=== PATIENT | female | born 1985 | race Caucasian/White ===

== ENCOUNTER 2016-06-01 04:50 | Emergency (ER) | payer BC ==
--- NOTE | 2016-06-01 06:27 | ED NURSING NOTES ---
Clinical Report - Nurses [facility] [address] [place] [address] 06/01/2016 4:52 [id number] Triage time 05:00 Jun 01 2016. Acuity: LEVEL 3. Chief Complaint: ANXIETY and AGITATED (flighty racing thoughts). 05:15 06/01/16. NATHANIEL COMA SCORE: Nathaniel Coma Scale: 15- eyes open spontaneously (4); best verbal response- oriented x 4 (5); best motor response- obeys commands (6). --05:15 Roma Nuno R.N. 05:00 06/01/16. BP: 124/83. HR: 98. RR: 24. O2 saturation: 100%. Temp: 98.5 F. Pain level now: 0/10. --05:15 Roma Nuno R.Rashmi. Weight: 65.7 kg stated. Height/Length: 60 inches Per Patient. BMI: 28.3. --04:59 Roma Nuno R.N. Medications Geodon Oral. --05:10 Roma Nuno R.N. LaMICtal Oral. --05:10 Roma Nuno R.N. Sertraline HCl Oral. --05:10 Roma Nuno R.N. Amitriptyline HCl Oral. --05:10 Roma Nuno R.N. Adderall Oral. --05:21 Roma Nuno R.N. Medication/allergy information source: the patient. --05:15 Roma Nuno R.N. Allergies Codeine. --05:11 Roma Nuno R.N. History Arrived by private vehicle. Historian: patient. Unaccompanied. Onset. (2 weeks). ( Patient reports new med to regime for her bipolar therapy. Geodon was added 2 weeks ago. 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 Reports feeling that she'd rather than go through this but doesnt voice direct suicidal thoughts or plans. 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 She reports she wants to calm down. Feels that symptoms started right after starting Geodon.). She has had anxiety and sleeping difficulties. Has been feeling agitated. Treatment ALTERATION WORKROOM SUPERVISOR: None. PAST MEDICAL HX: Denies current . SOCIAL HX: Never smoker. No alcohol use or drug use. No infectious disease exposure. ABUSE ASSESSMENT: No report of abuse. SELF HARM ASSESSMENT: A self harm assessment was performed. The patient answered "no" to the question "Have you recently felt down, depressed, or hopeless?", "Have you noticed less interest or pleasure in doing things?", "Do you have thoughts of harming or killing yourself?", "Are you here because you tried to hurt yourself?", "Have you ever tried to hurt yourself before today?", "Have you recently had thoughts about harming or killing others?" and "Do you have any dangerous items in your possession?". The patient reports their behavior as irritable and anxious. In the ED the patient has been restless and anxious. NUTRITIONAL RISK ASSESSMENT: The nutritional risk assessment revealed no deficiencies. FUNCTIONAL ASSESSMENT: Functional assessment: no impairments noted. LEARNING NEEDS ASSESSMENT: The learning needs assessment revealed no barriers. SKIN INTEGRITY ASSESSMENT: Skin integrity risk assessment completed. No skin integrity risk identified. --05:15 Roma Nuno R.N. PROBLEMS: Bipolar Disorder. --05:11 Roma Nuno R.N. ADDITIONAL SURGERIES: no known surgeries. Interventions ID band on patient. --05:15 Roma Nuno R.N. PHYSICAL ASSESSMENT 05:20 06/01/16. GENERAL / NEURO / PSYCH: Alert. Oriented X 4. Speech within normal limits. Affect appears abnormal. She appears to have altered thought processes, verbalized as "feeling outside of my body" and flights of ideas. Good eye contact. Denies suicidal thoughts. Patient does not express homicidal thoughts. Patient appears agitated. Patient appears well-nourished and neat and clean but does not smell of alcohol. She does not have abnormal gait. RESPIRATORY: Respirations not labored. CVS: Normal heart rate and rhythm. Capillary refill less than 2 seconds. GI / : Abdomen soft. SKIN: Skin is warm and dry. Skin not intact. --05:20 Roma Nuno R.N. NURSING PROGRESS NOTES 05:00 06/01/16. The initial plan of care for this patient includes an assessment with efforts to address the patient's anxiety and fear; impairment of the neurological system; therapeutic needs of the patient as indicated by complaint specific guidelines. This plan of care was discussed with the patient. Patient gowned. Reassurance given. Patient identifiers checked. Call light placed in reach. Bed placed in lowest position. Brakes of bed on. Patient ready for evaluation. --05:21 Roma Nuno R.N. 05:30. Checked patient name and birthdate: patient confirmed. Blood samples drawn from the right antecubital space by tech per protocol ; labeled in presence of the patient and sent to lab: rainbow set. --05:36 McQuoid, Brianna, ER Tech1 05:35 Urine sample requested; patient unable to void at this time. Patient given water and crackers per request. --05:37 McQuoid, Brianna, ER Tech1 06:06 06/01/2016 Ativan (LORazepam) PO Tablets 1 mg given. Allergies verified, confirmed 5 rights and sedative warning given to the patient. --06:07 Roma Nuno R.N. DISPOSITION / DISCHARGE 06:48 06/01/16. BP: 121/73. HR: 83. RR: 16. O2 saturation: 100%. Temp: 98.5 F. Pain level now 2/10. --06:48 Roma Nuno R.N. 06:53 06/01/16. Departure time: 06:53 Jun 01 2016. Condition at departure: improved and stable. The goals identified in the patient's plan of care were met. No learning barriers present. Discharge instructions provided and reviewed with the patient. Reviewed medication(s) side effects, precautions, dosing and course information. Prescription(s) given to the patient. Reviewed referral to a primary care physician for followup. Summary of care provided to patient via paper. Patient verbalized understanding. Written instructions provided in Hungarian. The patient was discharged home and accompanied by spouse. She left the Emergency Department ambulatory and via private vehicle. Spouse driving. --06:53 Roma Nuno R.N. Locked/Released at 06/01/2016 6:53 by Roma Nuno R.N.
--- NOTE | 2016-06-01 06:27 | ED CLINICAL REPORT ---
Clinical Report - Physicians/Mid Levels [facility] [address] [place] [address] 06/01/2016 4:52 Patient: CIRO BIRMINGHAM Time Seen: 0458; initial patient contact. Arrived- By private vehicle. Not in custody. Historian- patient. HISTORY OF PRESENT ILLNESS Chief Complaint: ANXIOUS. This started about 2 days ago. No situational problems or recent drug use or alcohol consumption. She has exhibited a sudden behavior change. She has had insomnia (Manic). She was not found wandering and is compliant with medication. Has not been eating or sleeping. She has had anxiety. Has not been depressed. No anger, unusual behavior, paranoia, delusions or suicidal thoughts. No self-injury inflicted or hallucinations. The symptoms are described as moderate. Additional history - Dx of Bipolar II. No H/O iban, was started on Geodon 2 weeks ago. Similar symptoms previously: None. Recent medical care: Not recently seen/assessed. REVIEW OF SYSTEMS No headache, palpitations, abdominal pain, fever or difficulty breathing. No skin rash. All systems otherwise negative, except as recorded above. PAST HISTORY ( Bipolar II). Surgeries: No history of previous surgery. SOCIAL HISTORY Never smoker. No alcohol use or drug use. Has good social support. Lives with family. Concerned individual (family) will stay with patient. Has place to stay. ADDITIONAL NOTES The nursing notes have been reviewed with agreement regarding the chief complaint, PMH and patient medications and allergies. PHYSICAL EXAM Appearance: Alert. Appearance is normal. Patient is in mild distress. Anxious. Eyes: Pupils equal, round and reactive to light. Neck: Normal inspection. Neck supple. No lymphadenopathy. CVS: Normal heart rate and rhythm. Heart sounds normal. Respiratory: No respiratory distress. Breath sounds normal. Abdomen: Soft and nontender. Obese. Back: No tenderness. No tenderness. Skin: Skin warm and dry. Normal skin color. Extremities: No lower extremity edema. Psych / Neuro: Oriented X 3. Mood and affect normal. Speech normal. Cognition normal. Thought process and content normal. Insight and judgement normal. LABS, X-RAYS, AND EKG Laboratory Tests: UA-Culture if indicated: (RAMONITA: 06/01/2016 06:00) ( [facility] 06/01/2016 06:19) Final results Test Result Flag Units (Reference) URINE COLOR YELLOW URINE APPEARANCE CLEAR URINE GLUCOSE NEGATIVE (NEGATIVE) URINE BILIRUBIN NEGATIVE (NEGATIVE) URINE KETONE NEGATIVE (NEGATIVE) URINE SPECIFIC GRAVITY 1.020 (1.010-1.030) URINE PH 8.5 H (5.0-8.0) URINE PROTEIN NEGATIVE (NEGATIVE) URINE UROBILINOGEN 0.2 EU/dL (0.2-1.0) URINE NITRITE NEGATIVE (NEGATIVE) URINE BLOOD TRACE-INTACT (NEGATIVE) URINE LEUK ESTERASE POSITIVE (NEGATIVE) URINE RBC 1-3 rbc/hpf (0-1) URINE WBC 10-15 wbc/hpf (0-1) URINE EPITHELIAL CELLS 1-3 EPI/hpf (0-5) URINE BACTERIA NONE SEEN (NONE SEEN) URINE COMMENT CULTURE INDICATED 2+ AMORPHOUSURINE CULTURES ARE SET-UP BASED ON THE FOLLOWING CRITERIA:POSITIVE NITRITEPOSITIVE LEUKOCYTE ESTERASEGREATER THAN 10 WHITE BLOOD CELLSMODERATE (2+) OR GREATER BACTERIA CBC w Diff: (RAMONITA: 06/01/2016 05:35) ( [facility] 06/01/2016 05:42) Final results Test Result Flag Units (Reference) WHITE BLOOD COUNT 8.5 K/uL (4.5-11.5) RED BLOOD COUNT 4.06 M/uL (4.00-5.20) HEMOGLOBIN 12.8 gm/dL (12.0-16.0) HEMATOCRIT 37.5 % (36.0-46.0) MEAN CELL VOLUME 92 fL (80-100) MEAN CORPUSCULAR HGB 31 pg (26-34) MEAN CORPUSCULAR HGB CONC 34 g/dL (31-37) RED CELL DISTRIBUTION WIDTH 13.1 % (11.6-14.8) PLATELET COUNT 371 K/uL (150-400) NEUTROPHIL % 69.6 % (50-75) LYMPH % 21.1 L % (25-40) MONO % 5.9 % (3-14) EOSINOPHIL % 3.0 % (0-4) BASOPHIL % 0.4 % (0-2) CMP: (RAMONITA: 06/01/2016 05:35) ( MsgRcvd 06/01/2016 06:15) Final results Test Result Flag Units (Reference) GLUCOSE 116 H mg/dL (70-110) BUN 9 mg/dL (7-18) CREATININE 0.7 mg/dL (0.6-1.3) Estimated GFR >60 mL/min Estimated GFR- >60 mL/min Note: Persistent reduction over 3 months in eGFR<60 mL/min/1.73 m2 defines CKD. Patients with eGFR values>=60 mL/min/1.73 m2 may also have CKD if evidence ofpersistent proteinuria. Additional information may be foundat www.kidney.org. SODIUM 142 mmol/L (136-145) POTASSIUM 3.6 mmol/L (3.5-5.1) CHLORIDE 104 mmol/L (98-107) CARBON DIOXIDE 27 mmol/L (21-32) CALCIUM 9.6 mg/dL (8.5-10.1) TOTAL PROTEIN 7.2 g/dL (6.4-8.2) ALBUMIN 4.2 g/dL (3.3-5.0) BILIRUBIN, TOTAL 0.3 mg/dL (0.0-1.0) ALKALINE PHOSPHATASE 63 U/L (46-116) AST (SGOT) 11 L U/L (15-37) ALT (SGPT) 19 U/L (12-78) THYROID STIMULATING HORMONE 4.543 H uIU/mL (0.34-3.74) . PROGRESS AND PROCEDURES Disposition: Discharged home in good and improved condition. Condition: good. CLINICAL IMPRESSION Chronic bipolar II disorder with the current episode being moderately manic without psychosis. Not hypomanic. Acute urinary tract infection with cystitis. Acquired hypothyroidism. INSTRUCTIONS Your Current Medications: STOP TAKING THE FOLLOWING MEDICATIONS: Adderall Oral. Geodon Oral. CONTINUE TAKING THE FOLLOWING MEDICATIONS: Amitriptyline HCl Oral. LaMICtal Oral. Sertraline HCl Oral. Prescription Medications: Ativan 1 mg: take 1 orally every 8 hours as needed for anxiety or sleep. Dispense fifteen (15). No refill. Substitution is permissible. Cipro 500 mg: take 1 tab orally every 12 hours for 3 days. No refills. Substitution is permissible. Follow-up: Follow up with your doctor in about two days. Call for an appointment. Screening today revealed the patient's blood pressure to be in the pre-hypertensive range. The patient should follow up with a primary care provider for blood pressure management. (Electronically signed by Douglas Merritt Dr. 06/01/2016 6:36)
--- NOTE | 2016-06-01 06:27 | ED ORDER SUMMARY ---
..... Patient: CIRO BIRMINGHAM OrderSheet [facility] VisitID: [id number] [address] [place] [address] 30y, F Registration Date/Time: 06/01/2016 ORDER SHEET Weight: 65.7 kg (stated) Allergies: Codeine GENERAL ORDERS: CBC w Diff Urgent (05:06/01/2016 Elissa Sahni) (Ack 5:26 IJurca ER Tech1) (5:35 AMcQuoid ER Tech1) CMP Urgent (05:06/01/2016 Elissa Sahni) (Ack 5:26 IJurca ER Tech1) (5:35 AMcQuoid ER Tech1) UA-Culture if indicated Urgent (05:06/01/2016 Elissa Sahni) (Ack 5:26 IJurca ER Tech1) (6:07 EInderbitzen R.N.) Urine Urgent (05:06/01/2016 Elissa Sahni) (Ack 5:26 IJurca ER Tech1) (6:07 EInderbitzen R.N.) Urine Drug Screen Urgent (05:06/01/2016 Elissa Sahni) (Ack 5:26 IJurca ER Tech1) (6:07 EInderbitzen R.N.) TSH Urgent (05:06/01/2016 Elissa Sahni) (Ack 5:26 IJurca ER Tech1) (5:35 AMcQuoid ER Tech1) MEDICATION ORDERS: Ativan PO 1 mg (HIGH ALERT MEDICATION, NOW) (06:06 06/01/2016 Elissa Sahni) (6:07 EInderbitzen R.N.) IV FLUIDS: ORDER SHEET NOTES: [Electronically signed by Douglas Merritt Dr. (06:36 06/01/2016)] [Electronically signed by Roma Nuon R.N. (06:53 06/01/2016)] [Electronically locked/signed by Roma Nuno R.N. (06:53 06/01/2016)]
--- NOTE | 2016-06-01 06:27 | ED ORDER SUMMARY ---
..... Patient: CIRO BIRMINGHAM OrderSheet [facility] VisitID: [id number] [address] [place] [address] 30y, F Registration Date/Time: 06/01/2016 ORDER SHEET Weight: 65.7 kg (stated) Allergies: Codeine GENERAL ORDERS: CBC w Diff Urgent (05:06/01/2016 Elissa Sahni) (Ack 5:26 IJurca ER Tech1) (5:35 AMcQuoid ER Tech1) CMP Urgent (05:06/01/2016 Elissa Sahni) (Ack 5:26 IJurca ER Tech1) (5:35 AMcQuoid ER Tech1) UA-Culture if indicated Urgent (05:06/01/2016 Elissa Sahni) (Ack 5:26 IJurca ER Tech1) (6:07 EInderbitzen R.N.) Urine Urgent (05:06/01/2016 Elissa Sahni) (Ack 5:26 IJurca ER Tech1) (6:07 EInderbitzen R.N.) Urine Drug Screen Urgent (05:06/01/2016 Elissa Sahni) (Ack 5:26 IJurca ER Tech1) (6:07 EInderbitzen R.N.) TSH Urgent (05:06/01/2016 Elissa Sahni) (Ack 5:26 IJurca ER Tech1) (5:35 AMcQuoid ER Tech1) MEDICATION ORDERS: Ativan PO 1 mg (HIGH ALERT MEDICATION, NOW) (06:06 06/01/2016 Elissa Sahni) (6:07 EInderbitzen R.N.) IV FLUIDS: ORDER SHEET NOTES: [Electronically signed by Douglas Merritt Dr. (06:36 06/01/2016)] [Electronically signed by Roma Nuno R.N. (06:53 06/01/2016)] [Electronically locked/signed by Roma Nuno R.N. (06:53 06/01/2016)]
--- NOTE | 2016-06-01 06:27 | ED NURSING NOTES ---
Clinical Report - Nurses [facility] [address] [place] [address] 06/01/2016 4:52 [id number] Triage time 05:00 Jun 01 2016. Acuity: LEVEL 3. Chief Complaint: ANXIETY and AGITATED (flighty racing thoughts). 05:15 06/01/16. NATHANIEL COMA SCORE: Nathaniel Coma Scale: 15- eyes open spontaneously (4); best verbal response- oriented x 4 (5); best motor response- obeys commands (6). --05:15 Roma Nuno R.N. 05:00 06/01/16. BP: 124/83. HR: 98. RR: 24. O2 saturation: 100%. Temp: 98.5 F. Pain level now: 0/10. --05:15 Roma Nuno R.Rashmi. Weight: 65.7 kg stated. Height/Length: 60 inches Per Patient. BMI: 28.3. --04:59 Roma Nuno R.N. Medications Geodon Oral. --05:10 Roma Nuno R.N. LaMICtal Oral. --05:10 Roma Nuno R.N. Sertraline HCl Oral. --05:10 Roma Nuno R.N. Amitriptyline HCl Oral. --05:10 Roma Nuno R.N. Adderall Oral. --05:21 Roma Nuno R.N. Medication/allergy information source: the patient. --05:15 Roma Nuno R.N. Allergies Codeine. --05:11 Roma Nuno R.N. History Arrived by private vehicle. Historian: patient. Unaccompanied. Onset. (2 weeks). ( Patient reports new med to regime for her bipolar therapy. Geodon was added 2 weeks ago. 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 Reports feeling that she'd rather than go through this but doesnt voice direct suicidal thoughts or plans. 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 She reports she wants to calm down. Feels that symptoms started right after starting Geodon.). She has had anxiety and sleeping difficulties. Has been feeling agitated. Treatment PRACTICE SUPPORT SPECIALIST: None. PAST MEDICAL HX: Denies current . SOCIAL HX: Never smoker. No alcohol use or drug use. No infectious disease exposure. ABUSE ASSESSMENT: No report of abuse. SELF HARM ASSESSMENT: A self harm assessment was performed. The patient answered "no" to the question "Have you recently felt down, depressed, or hopeless?", "Have you noticed less interest or pleasure in doing things?", "Do you have thoughts of harming or killing yourself?", "Are you here because you tried to hurt yourself?", "Have you ever tried to hurt yourself before today?", "Have you recently had thoughts about harming or killing others?" and "Do you have any dangerous items in your possession?". The patient reports their behavior as irritable and anxious. In the ED the patient has been restless and anxious. NUTRITIONAL RISK ASSESSMENT: The nutritional risk assessment revealed no deficiencies. FUNCTIONAL ASSESSMENT: Functional assessment: no impairments noted. LEARNING NEEDS ASSESSMENT: The learning needs assessment revealed no barriers. SKIN INTEGRITY ASSESSMENT: Skin integrity risk assessment completed. No skin integrity risk identified. --05:15 Roma Nuno R.N. PROBLEMS: Bipolar Disorder. --05:11 Roma Nuno R.N. ADDITIONAL SURGERIES: no known surgeries. Interventions ID band on patient. --05:15 Roma Nuno R.N. PHYSICAL ASSESSMENT 05:20 06/01/16. GENERAL / NEURO / PSYCH: Alert. Oriented X 4. Speech within normal limits. Affect appears abnormal. She appears to have altered thought processes, verbalized as "feeling outside of my body" and flights of ideas. Good eye contact. Denies suicidal thoughts. Patient does not express homicidal thoughts. Patient appears agitated. Patient appears well-nourished and neat and clean but does not smell of alcohol. She does not have abnormal gait. RESPIRATORY: Respirations not labored. CVS: Normal heart rate and rhythm. Capillary refill less than 2 seconds. GI / : Abdomen soft. SKIN: Skin is warm and dry. Skin not intact. --05:20 Roma Nuno R.N. NURSING PROGRESS NOTES 05:00 06/01/16. The initial plan of care for this patient includes an assessment with efforts to address the patient's anxiety and fear; impairment of the neurological system; therapeutic needs of the patient as indicated by complaint specific guidelines. This plan of care was discussed with the patient. Patient gowned. Reassurance given. Patient identifiers checked. Call light placed in reach. Bed placed in lowest position. Brakes of bed on. Patient ready for evaluation. --05:21 Roma Nuno R.N. 05:30. Checked patient name and birthdate: patient confirmed. Blood samples drawn from the right antecubital space by tech per protocol ; labeled in presence of the patient and sent to lab: rainbow set. --05:36 McQuoid, Brianna, ER Tech1 05:35 Urine sample requested; patient unable to void at this time. Patient given water and crackers per request. --05:37 McQuoid, Brianna, ER Tech1 06:06 06/01/2016 Ativan (LORazepam) PO Tablets 1 mg given. Allergies verified, confirmed 5 rights and sedative warning given to the patient. --06:07 Roma Nuno R.N. DISPOSITION / DISCHARGE 06:48 06/01/16. BP: 121/73. HR: 83. RR: 16. O2 saturation: 100%. Temp: 98.5 F. Pain level now 2/10. --06:48 Roma Nuno R.N. 06:53 06/01/16. Departure time: 06:53 Jun 01 2016. Condition at departure: improved and stable. The goals identified in the patient's plan of care were met. No learning barriers present. Discharge instructions provided and reviewed with the patient. Reviewed medication(s) side effects, precautions, dosing and course information. Prescription(s) given to the patient. Reviewed referral to a primary care physician for followup. Summary of care provided to patient via paper. Patient verbalized understanding. Written instructions provided in Albanian. The patient was discharged home and accompanied by spouse. She left the Emergency Department ambulatory and via private vehicle. Spouse driving. --06:53 Roma Nuno R.N. Locked/Released at 06/01/2016 6:53 by Roma Nuno R.N.
--- NOTE | 2016-06-01 06:54 | ED MAR SUMMARY ---
..... Medication Administration Record [facility] [address] [place] [address] Patient: CIRO BIRMINGHAM Visit ID: [id number] 30y, F Weight: 65.7 kg Height/Length: 60 in BMI: 28.3 ALLERGIES: Codeine Given 06:06 06/01/2016 Roma Nuno R.N. Medication Administered: ATIVAN [PO] (LORAZEPAM), Dose: 1 mg Tablets PO. Medication Ordered: Ativan PO 1 mg (HIGH ALERT MEDICATION, NOW).
--- NOTE | 2016-06-01 06:54 | ED DISCHARGE INSTRUCTIONS ---
Patient: CIRO BIRMINGHAM General Instructions [facility] VisitID: [id number] [place] [address] 30y, F Registration Date/Time: 06/01/2016 Chronic bipolar II disorder with the current episode being moderately manic without psychosis. Not hypomanic. Acute urinary tract infection with cystitis. Acquired hypothyroidism. INSTRUCTIONS Your Current Medications: STOP TAKING THE FOLLOWING MEDICATIONS: Adderall Oral. Geodon Oral. CONTINUE TAKING THE FOLLOWING MEDICATIONS: Amitriptyline HCl Oral. LaMICtal Oral. Sertraline HCl Oral. Prescription Medications: Ativan 1 mg: take 1 orally every 8 hours as needed for anxiety or sleep. Dispense fifteen (15). No refill. Substitution is permissible. Cipro 500 mg: take 1 tab orally every 12 hours for 3 days. No refills. Substitution is permissible. Follow-up: Follow up with your doctor in about two days. Call for an appointment. Screening today revealed the patient's blood pressure to be in the pre-hypertensive range. The patient should follow up with a primary care provider for blood pressure management. ADDITIONAL INFORMATION Bipolar Disorder Bipolar disorder (formerly called manic depression) is an illness that causes strong mood swings between depression and iban. This can interfere with work and relationships. In a manic episode, you may think fast and do things quickly. It may seem like you are getting a lot done. At first, this may feel very good; but in the extreme this can lead to a lifestyle that is disorganized, chaotic, and includes risky behavior (spending sprees, sexual acting-out, or drug use). In later stages, it may affect eating (no interest in food) and sleeping (unable to sleep for days at a time). Speech may speed up and become difficult for others to understand. You may appear to others as if you are in your own world. In a depressive episode, you may feel a lack of interest in normal activities. Sometimes there is sadness or guilt without any clear reason. Thinking may become slow and there can be a lack energy or feeling of hopelessness. Some people have thoughts of harming themselves at this stage. Thoughts can even turn to suicide. Between these two phases you may actually feel okay. This does not mean that the illness is gone. People with this disorder will usually have to treat it all of their life. Medication and good care can greatly reduce the symptoms. The exact cause of this illness is unknown. However, there is a genetic link that makes a person more likely to get this problem. Also, the use of drugs such as speed (amphetamine) and cocaine increase the chances of this illness appearing. Home Care: Be sure to take your medicine even if you think you dont need it. Talk with your family about your thoughts and feelings. Follow Up with your doctor or therapist as directed by our staff. They can help you to find ways to improve your life. For more information: The [employer] www.indira.org 070-882-6105. Get Prompt Medical Attention if any of the following occur: Feeling like your symptoms are getting worse (depression, agitation, excess energy) Unable to eat or sleep for more than 48 hours Feeling out of control (racing thoughts, poor concentration) Feeling like you want to harm yourself or another Being unable to care for yourself Bladder Infection,Female (Adult) A bladder infection ("cystitis" or "UTI") usually causes a constant urge to urinate and a burning when passing urine. Urine may be cloudy, smelly or dark. There may be pain in the lower abdomen. A bladder infection occurs when bacteria from the vaginal area enter the bladder opening (urethra). This can occur from sexual intercourse, wearing tight clothing, dehydration and other factors. Home Care: Drink lots of fluids (at least 6-8 glasses a day, unless you must restrict fluids for other medical reasons). This will force the medicine into your urinary system and flush the bacteria out of your body. Avoid sexual intercourse until your symptoms are gone. Avoid caffeine, alcohol and spicy foods. These can irritate the bladder. A bladder infection is treated with antibiotics. You may also be given Pyridium (generic = phenazopyridine) to reduce the burning sensation. This medicine will cause your urine to become a bright orange color. The orange urine may stain clothing. You may wear a pad or panty-liner to protect clothing. Preventing Future Infections: Always wipe from front to back after a bowel movement. Keep the genital area clean and dry. Drink plenty of fluids each day to avoid dehydration. Both sexual partners should wash before intercourse. Urinate right after intercourse to flush out the bladder. Wear cotton underwear and cotton-lined panty hose; avoid tight-fitting pants. If you are on control pills and are having frequent bladder infections, discuss with your doctor. Follow Up: Return to this facility or see your doctor if ALL symptoms are not gone after three days of treatment. Get Prompt Medical Attention if any of the following occur: Fever of 100.4F (38C) or higher, or as directed by your healthcare provider No improvement by the third day of treatment Increasing back or abdominal pain Repeated vomiting; unable to keep medicine down Weakness, dizziness or fainting Vaginal discharge Pain, redness or swelling in the labia (outer vaginal area) Hypothyroidism You have been diagnosed with hypothyroidism. This means your thyroid gland is not producing enough thyroid hormone. This hormone is important to body growth and metabolism. If you don't have enough, many body processes slow down, causing mental and physical sluggishness. A variety of other symptoms may occur and vary from mild to severe. The most severe form of this illness is called myxedema. Signs Of Hyperthyroidism (too much thyroid hormone, which can be a side effect of treatment for low thyroid): Restlessness, nervousness Increased appetite with weight loss Excess sweating Palpitations or irregular heartbeat Feeling overheated Signs Of Hypothyroidism (too little thyroid hormone): Fatigue or sluggishness Difficulty concentrating or thinking clearly; forgetfulness Dry skin, hair loss Depression Unexpected weight gain Feeling cold, or cold hands and/or feet Home Care: Take your medicine exactly as directed at the same time every day. Don't take thyroid pills with soy milk since this interferes with absorption. After taking your thyroid medicine: Wait 4 hours before eating or drinking anything that contains soy. Wait 4 hours before taking iron supplements, antacids that contain either calcium or aluminum hydroxide, or calcium supplements (regular amounts of cows milk are probably okay). Do not stop treatment on your own. If you do, your symptoms will return. Eat a high-fiber, low-calorie diet to relieve constipation and maintain a healthy weight. Get regular exercise. Talk to your doctor about an exercise program that is right for you. Follow Up with your doctor or as advised by our staff. Your thyroid level will need to be monitored for the rest of your life. During your routine visits, tell your doctor about any symptoms such as the ones listed below. Get Prompt Medical Attention if any of the following occur: Extreme fatigue Puffy hands, face, or feet Chest pain or trouble breathing Palpitations or irregular heartbeat Confusion or loss of consciousness Lorazepam Oral tablet What is this medicine? LORAZEPAM (radha A ze hailee) is a benzodiazepine. It is used to treat anxiety. How should I use this medicine? Take this medicine by mouth with a glass of water. Follow the directions on the prescription label. If it upsets your stomach, take it with food or milk. Take your medicine at regular intervals. Do not take it more often than directed. Do not stop taking except on the advice of your doctor or health career development specialist. Talk to your plant attendant or assistant operator regarding the use of this medicine in children. Special care may be needed. What side effects may I notice from receiving this medicine? Side effects that you should report to your doctor or health career development specialist as soon as possible: changes in vision confusion depression mood changes, excitability or aggressive behavior movement difficulty, staggering or jerky movements muscle cramps restlessness weakness or tiredness Side effects that usually do not require medical attention (report to your doctor or health career development specialist if they continue or are bothersome): constipation or diarrhea difficulty sleeping, nightmares dizziness, drowsiness headache nausea, vomiting What may interact with this medicine? barbiturate medicines for inducing sleep or treating seizures, like phenobarbital clozapine medicines for depression, mental problems or psychiatric disturbances medicines for sleep phenytoin probenecid theophylline valproic acid What if I miss a dose? If you miss a dose, take it as soon as you can. If it is almost time for your next dose, take only that dose. Do not take double or extra doses. Where should I keep my medicine? Keep out of the reach of children. This medicine can be abused. Keep your medicine in a safe place to protect it from theft. Do not share this medicine with anyone. Selling or giving away this medicine is dangerous and against the law. Store at room temperature between 20 and 25 degrees C (68 and 77 degrees F). Protect from light. Keep container tightly closed. Throw away any unused medicine after the expiration date. What should I tell my health care provider before I take this medicine? They need to know if you have any of these conditions: alcohol or drug abuse problem bipolar disorder, depression, psychosis or other mental health condition glaucoma kidney or liver disease lung disease or breathing difficulties myasthenia gravis Parkinson's disease seizures or a history of seizures suicidal thoughts an unusual or allergic reaction to lorazepam, other benzodiazepines, foods, dyes, or preservatives or trying to get breast-feeding What should I watch for while using this medicine? Visit your doctor or health career development specialist for regular checks on your progress. Your body may become dependent on this medicine, ask your doctor or health career development specialist if you still need to take it. However, if you have been taking this medicine regularly for some time, do not suddenly stop taking it. You must gradually reduce the dose or you may get severe side effects. Ask your doctor or health career development specialist for advice before increasing or decreasing the dose. Even after you stop taking this medicine it can still affect your body for several days. You may get drowsy or dizzy. Do not drive, use machinery, or do anything that needs mental alertness until you know how this medicine affects you. To reduce the risk of dizzy and fainting spells, do not stand or sit up quickly, especially if you are an older patient. Alcohol may increase dizziness and drowsiness. Avoid alcoholic drinks. Do not treat yourself for coughs, colds or allergies without asking your doctor or health career development specialist for advice. Some ingredients can increase possible side effects. Ciprofloxacin Hydrochloride Oral tablet What is this medicine? CIPROFLOXACIN (sip guillaume FLOX a sin) is a quinolone antibiotic. It is used to treat certain kinds of bacterial infections. It will not work for colds, flu, or other viral infections. How should I use this medicine? Take this medicine by mouth with a glass of water. Follow the directions on the prescription label. Take your medicine at regular intervals. Do not take your medicine more often than directed. Take all of your medicine as directed even if you think your are better. Do not skip doses or stop your medicine early. You can take this medicine with food or on an empty stomach. It can be taken with a meal that contains dairy or calcium, but do not take it alone with a dairy product, like milk or yogurt or calcium-fortified juice. A special MedGuide will be given to you by the pharmacist with each prescription and refill. Be sure to read this information carefully each time. Talk to your plant attendant or assistant operator regarding the use of this medicine in children. Special care may be needed. What side effects may I notice from receiving this medicine? Side effects that you should report to your doctor or health career development specialist as soon as possible: - allergic reactions like skin rash, itching or hives, swelling of the face, lips, or tongue - breathing problems - confusion, nightmares or hallucinations - feeling faint or lightheaded, falls - irregular heartbeat - joint, muscle or tendon pain or swelling - pain or trouble passing urine -persistent headache with or without blurred vision - redness, blistering, peeling or loosening of the skin, including inside the mouth - seizure - unusual pain, numbness, tingling, or weakness Side effects that usually do not require medical attention (report to your doctor or health career development specialist if they continue or are bothersome): - diarrhea - nausea or stomach upset - white patches or sores in the mouth What may interact with this medicine? Do not take this medicine with any of the following medications: cisapride droperidol terfenadine tizanidine This medicine may also interact with the following medications: antacids caffeine cyclosporin didanosine (ddI) buffered tablets or powder medicines for diabetes medicines for inflammation like ibuprofen, naproxen methotrexate multivitamins omeprazole phenytoin probenecid sucralfate theophylline warfarin What if I miss a dose? If you miss a dose, take it as soon as you can. If it is almost time for your next dose, take only that dose. Do not take double or extra doses. Where should I keep my medicine? Keep out of the reach of children. Store at room temperature below 30 degrees C (86 degrees F). Keep container tightly closed. Throw away any unused medicine after the expiration date. What should I tell my health care provider before I take this medicine? They need to know if you have any of these conditions: -bone problems -cerebral disease -joint problems -irregular heartbeat -kidney disease -liver disease -myasthenia gravis -seizure disorder -tendon problems -an unusual or allergic reaction to ciprofloxacin, other antibiotics or medicines, foods, dyes, or preservatives - or trying to get -breast-feeding What should I watch for while using this medicine? Tell your doctor or health career development specialist if your symptoms do not improve. Do not treat diarrhea with over the counter products. Contact your doctor if you have diarrhea that lasts more than 2 days or if it is severe and watery. You may get drowsy or dizzy. Do not drive, use machinery, or do anything that needs mental alertness until you know how this medicine affects you. Do not stand or sit up quickly, especially if you are an older patient. This reduces the risk of dizzy or fainting spells. This medicine can make you more sensitive to the sun. Keep out of the sun. If you cannot avoid being in the sun, wear protective clothing and use sunscreen. Do not use sun lamps or tanning beds/booths. Avoid antacids, aluminum, calcium, iron, magnesium, and zinc products for 6 hours before and 2 hours after taking a dose of this medicine. You have been given the following additional information: Bipolar Disorder Bladder Infection, Female (Adult) Hypothyroidism Lorazepam Oral tablet Ciprofloxacin Hydrochloride Oral tablet (Electronically signed by Douglas Merritt Dr. 06/01/2016 6:36)
--- NOTE | 2016-06-01 06:54 | ED MAR SUMMARY ---
..... Medication Administration Record [facility] [address] [place] [address] Patient: CIRO BIRMINGHAM Visit ID: [id number] 30y, F Weight: 65.7 kg Height/Length: 60 in BMI: 28.3 ALLERGIES: Codeine Given 06:06 06/01/2016 Roma Nuno R.N. Medication Administered: ATIVAN [PO] (LORAZEPAM), Dose: 1 mg Tablets PO. Medication Ordered: Ativan PO 1 mg (HIGH ALERT MEDICATION, NOW).
--- NOTE | 2016-06-01 06:55 | ED MED RECONCILIATION SUMMARY ---
Patient: CIRO BIRMINGHAM Medication Reconciliation Report [facility] VisitID: [id number] [address] [place] [address] 30y, F Registration Date/Time: 06/01/2016 Weight: 65.7 kg Height/Length: 60 in. BMI: 28.3 ALLERGIES: Codeine The patient's Home Medications are listed below: STOP TAKING THE FOLLOWING MEDICATIONS: Adderall Oral Geodon Oral CONTINUE TAKING THE FOLLOWING MEDICATIONS: Amitriptyline HCl Oral LaMICtal Oral Sertraline HCl Oral The source(s) of the original Home Medication information: patient The following Medications were given to the patient in the Emergency Department: Ativan [PO] PO 1 mg, administered: 06/01/2016 6:06:00 AM The following Medications were prescribed to the patient: Ativan 1 mg: take 1 orally every 8 hours as needed for anxiety or sleep. Dispense fifteen (15). No refill. Substitution is permissible. -- Douglas Merritt Dr. Cipro 500 mg: take 1 tab orally every 12 hours for 3 days. No refills. Substitution is permissible. -- Douglas Merritt Dr.
--- NOTE | 2016-06-01 06:55 | ED MED RECONCILIATION SUMMARY ---
Patient: CIRO BIRMINGHAM Medication Reconciliation Report [facility] VisitID: [id number] [address] [place] [address] 30y, F Registration Date/Time: 06/01/2016 Weight: 65.7 kg Height/Length: 60 in. BMI: 28.3 ALLERGIES: Codeine The patient's Home Medications are listed below: STOP TAKING THE FOLLOWING MEDICATIONS: Adderall Oral Geodon Oral CONTINUE TAKING THE FOLLOWING MEDICATIONS: Amitriptyline HCl Oral LaMICtal Oral Sertraline HCl Oral The source(s) of the original Home Medication information: patient The following Medications were given to the patient in the Emergency Department: Ativan [PO] PO 1 mg, administered: 06/01/2016 6:06:00 AM The following Medications were prescribed to the patient: Ativan 1 mg: take 1 orally every 8 hours as needed for anxiety or sleep. Dispense fifteen (15). No refill. Substitution is permissible. -- Douglas Merritt Dr. Cipro 500 mg: take 1 tab orally every 12 hours for 3 days. No refills. Substitution is permissible. -- Douglas Merritt Dr.
== END 2016-06-01 06:53 | disposition home or self-care (01) ==
LOC: ED SRH 04:50 → EDBD 04:53 → ED SRH 04:53
DX: F31.81 Bipolar II disorder (principal); N30.00 Acute cystitis without hematuria; E03.9 Hypothyroidism, unspecified; Z79.899 Other long term (current) drug therapy; Z88.5 Allergy status to narcotic agent
CPT/HCPCS: 90004; 90100; 90469; 92760; 92761; 92762; 92763; 92764; 92765; 92766; 92767; 93070; 93140; 95059